=== PATIENT | male | born 1980 | race African-American/Black ===

== ENCOUNTER 2019-02-23 02:56 | Emergency (ER) | payer SELFPAY ==
[~2019-02-23] VITALS: Ht 180.3 cm; Wt 83.9 kg
--- NOTE | 2019-02-23 03:09 | NUR ---
DR. GARCIA AT BEDSIDE FOR MSE.
[2019-02-23] MEDS ORDERED: ONDANSETRON ODT 4 MG TAB.RAPDIS SL ONE (03:15)
[2019-02-23] MEDS ORDERED: predniSONE 20 MG TABLET PO ONE (03:15)
[2019-02-23] MEDS ORDERED: CYCLOBENZAPRINE HCL 10 MG TABLET PO ONE (03:15)
[2019-02-23] MEDS ORDERED: HYDROMORPHONE 1 MG/1 ML DISP.SYRIN IM ONE ×2 (03:15→04:30)
[2019-02-23] MEDS ORDERED: ONDANSETRON ODT 4 MG TAB.RAPDIS ONE (03:20)
[2019-02-23] MEDS ORDERED: HYDROMORPHONE 2 MG/1 ML DISP.SYRIN ONE (03:21)
[2019-02-23] MEDS ORDERED: CYCLOBENZAPRINE HCL 10 MG TABLET ONE (03:21)
[2019-02-23] MEDS ORDERED: predniSONE 20 MG TABLET ONE (03:21)
[2019-02-23] MEDS ORDERED: HYDROMORPHONE 1 MG/1 ML DISP.SYRIN ONE (04:27)
[2019-02-23 04:42] VITALS: BP 135/88
--- NOTE | 2019-02-23 04:42 | NUR ---
Patient discharged to home in stable conditon. Written and verbal after care instructions given. Patient verbalizes understanding of instructions. PATIENT LEFT WITH STABLE GAIT.
== END 2019-02-23 04:43 | disposition home or self-care (01) ==
LOC: ER 03:01
DX: M54.5 Low back pain (principal); F17.290 Nicotine dependence, other tobacco product, uncomplicated
CPT/HCPCS: 72100; 96372 ×2; 99284; 99406; J1170 ×2; J7512; A4663; Q0162